=== PATIENT | male | born 1965 | race Caucasian/White ===

== ENCOUNTER 2022-07-24 03:05 | Inpatient (IN) | payer BC ==
[2022-07-24 03:35] LABS: Actual Bicarbonate (HCO3v) 22 mEq/L (22-28); Base Excess -1.9 mEq/L (-2 - +2); Chloride (VBG) 96 mmol/L (98-106); Critical Notified By: CP.PH; Hemoglobin (Hb) 14.7 g/dL (13.1-17.2); Puncture Site Other Site; Sodium 135.7 mmol/L (133-146); pH (venous) 7.41 (7.32-7.43)
[2022-07-24 03:39] LABS: #Basophils 0.1 10x3/uL (0.0-0.2); #Eosinphils 0.1 10x3/uL (0.0-0.5); #Monocytes 0.6 10x3/uL (0.0-1.1); #Neutrophils 6.8 10x3/uL (1.5-8.4); %Basophils 0.5 % (0.0-2.0); %Eosinophils 0.9 % (0.0-6.0); %Lymphocytes 22.9 % (18.0-47.0); %Monocytes 5.9 % (0.0-10.0); %Neutrophils 69.4 % (40.0-75.0); Hemoglobin 13.7 g/dL (13.5-17.5); Mean Corpuscular HGB CONC 33.5 g/dL (32.0-36.0); Mean Corpuscular Hemoglobin 29.6 pg (27.0-33.0); Mean Corpuscular Volume 88.3 fl (81.2-95.1); Mean Platelet Volume 11.9 fl (7.4-10.4); Platelet Count 316 10x3/uL (150-450); RBC Distribution Width 13.4 % (11.5-14.5); Red Blood Cell (RBC) Count 4.63 10x6/uL (4.32-5.72); White Blood Cell (WBC) Count 9.9 10x3/uL (3.5-10.5)
[2022-07-24 03:56] LABS: ALT (SGPT) 10 U/L (8-55); AST (SGOT) 11 U/L (5-34); Albumin 3.6 g/dL (3.5-5.0); Alkaline Phosphatase 111 U/L (40-110); Anion Gap 15 mmol/L (10-20); BUN (Urea Nitrogen) 17 mg/dL (8.4-25.7); Bilirubin, Total 0.7 mg/dL (0.2-1.2); Calc. Creatinine Clearance 0 mL/min (70-130); Calcium 8.8 mg/dL (7.8-10.44); Carbon Dioxide 22 mmol/L (22-29); Chloride 101 mmol/L (98-107); Estimated GFR 71; Globulin 2.6 g/dL (2.4-3.5); Lipase 26 U/L (8-78); Potassium 4.3 mmol/L (3.5-5.1); Protein, Total 6.2 g/dL (6.0-8.3); Sodium 134 mmol/L (136-145)
[2022-07-24 04:03] LABS: Glucose 536 mg/dL (70-105)
[2022-07-24] MEDS ORDERED: Insulin Regular 300 UNITS/3 ML VIAL ONE (04:06)
[2022-07-24 04:20] LABS: CKMB 2.5 ng/mL (0-6.6)
[2022-07-24 04:22] LABS: SARS-CoV-2 NAA Rapid Test Not Detected (NotDetected)
[2022-07-24] MEDS ORDERED: Furosemide 40 MG/4 ML VIAL ONE (05:00)
[2022-07-24] MEDS ORDERED: Lorazepam 2 MG/ML VIAL ONE (05:13)
[2022-07-24] MEDS ORDERED: Cefepime 2 GM VIAL ONE (05:35)
[2022-07-24] MEDS ORDERED: Ondansetron PF 4 MG/2 ML Vial IVP PRN (05:57)
[2022-07-24] MEDS ORDERED: Guaifenesin DM 100-10/5 ML UDCUP PO PRN (05:57)
[2022-07-24] MEDS ORDERED: HYDROcodone/Acetaminophen 5/325 mg Tablet PO PRN (05:57)
[2022-07-24] MEDS ORDERED: HumaLOG 300 UNITS/3 ML VIAL SC PRN ×2 (05:57→12:30)
[2022-07-24] MEDS ORDERED: Dextrose 5% in Water 1,000 ML IV PRN (05:57)
[2022-07-24] MEDS ORDERED: Acetaminophen 325 MG TAB PO PRN (05:57)
[2022-07-24] MEDS ORDERED: Calcium Carbonate 500 MG ChewTAB PO PRN (05:57)
[2022-07-24] MEDS ORDERED: Dextrose 50% Abboject 50 ML SYRINGE SLOW IVP PRN (05:57)
[2022-07-24] MEDS ORDERED: Ipratropium/Albuterol 3 ML NEB NEB PRN (06:00)
[2022-07-24] MEDS ORDERED: Vancomycin 1 GM VIAL ONE (06:10)
[2022-07-24] MEDS ORDERED: methylPREDNISolone Sod Succ/PF 125 MG/2 ML VIAL IVP SCH (08:15)
[2022-07-24 08:44] LABS: Lactic Acid 1.6 mmol/L (0.5-2.2)
[2022-07-24] MEDS ORDERED: Iopamidol 370 76% 100 ML VIAL ONE (08:59)
[2022-07-24] MEDS ORDERED: Lantus 1000 UNITS/10 ML VIAL SC SCH (09:00)
[2022-07-24] MEDS ORDERED: Metoprolol Tartrate 25 MG TAB PO SCH (09:00)
[2022-07-24 09:09] LABS: CKMB 2.4 ng/mL (0-6.6)
[2022-07-24] MEDS: Benzonatate 100 MG CAP PO SCH ×3 (10:08→20:46)
[2022-07-24] MEDS: Aspirin 81 mg Enteric Coated Tablet PO SCH (10:08)
[2022-07-24] MEDS: Famotidine/PF 20 mg/2ml Vial SLOW IVP SCH ×2 (10:14→20:46)
[2022-07-24] MEDS ORDERED: ALPRAZolam 0.5 MG TAB PO PRN (11:00)
[2022-07-24 11:52] LABS: Legionella Urinary Ag Negative (Negative); Strep pneumo Urine Ag NEGATIVE (NEGATIVE)
[2022-07-24] MEDS: methylPREDNISolone Sod Succ 40 MG VIAL IVP SCH ×2 (15:15→20:46)
[2022-07-24 15:44] LABS: Bilirubin Neg (Negative); Blood, Urine Negative (Negative); Clarity Clear (Clear); Glucose, Urine (Dipstick) >=1000 mg/dL (Negative); Ketone, Urine 15 mg/dL (Negative); Leukocyte Negative (Negative); Nitrite Negative (Negative); Protein, Urine (Dipstick) Negative (Neg-Trace); Urobilinogen Normal mg/dL (Less than 2)
[2022-07-24 15:57] LABS: Bacteria/HPF None Seen HPF (None Seen); RBC/HPF None Seen HPF (0-3); Squamous Epithelial 0-3 HPF (0-3); WBC/HPF None Seen HPF (0-3)
[2022-07-24] MEDS: HumaLOG 300 UNITS/3 ML VIAL SC PRN ×2 (16:41→21:22)
[2022-07-24] MEDS ORDERED: Carvedilol 3.125 MG TAB PO SCH (17:00)
[2022-07-24] MEDS ORDERED: Spironolactone 25 MG TAB PO SCH (17:15)
[2022-07-24] MEDS: Vancomycin HCl 1 GM in Sodium Chloride 0.9% 250 ML 250 ML IVPB SCH (18:14)
[2022-07-24] MEDS: Cefepime 2 GM in Sodium Chloride 0.9% 100 ML IVPB SCH (18:14)
[2022-07-24] MEDS ORDERED: Vancomycin 1 GM in Premix Bag 1 BAG IVPB SCH (18:30)
[2022-07-24] MEDS ORDERED: Zolpidem Tartrate 5 MG TAB PO PRN (20:39)
[2022-07-24] MEDS: Atorvastatin Calcium 10 MG TAB PO SCH (20:46)
[2022-07-24] MEDS: Lantus 1000 UNITS/10 ML VIAL SC SCH (20:46)
[2022-07-24] MEDS: Mometasone/Formoterol 200/5 60 PUFF INH SCH (21:49)
[2022-07-25] MEDS: methylPREDNISolone Sod Succ 40 MG VIAL IVP SCH ×2 (01:54→09:22)
[2022-07-25 04:41] LABS: #Monocytes 0.2 10x3/uL (0.0-1.1); %Basophils 0.1 % (0.0-2.0); %Lymphocytes 9.6 % (18.0-47.0); %Monocytes 1.6 % (0.0-10.0); %Neutrophils 88.3 % (40.0-75.0); Hemoglobin 13.6 g/dL (13.5-17.5); Mean Corpuscular HGB CONC 32.7 g/dL (32.0-36.0); Mean Corpuscular Hemoglobin 29.7 pg (27.0-33.0); Mean Corpuscular Volume 90.8 fl (81.2-95.1); Mean Platelet Volume 12.4 fl (7.4-10.4); Platelet Count 292 10x3/uL (150-450); RBC Distribution Width 13.6 % (11.5-14.5); Red Blood Cell (RBC) Count 4.58 10x6/uL (4.32-5.72); White Blood Cell (WBC) Count 11.4 10x3/uL (3.5-10.5)
[2022-07-25 04:45] LABS: Anion Gap 14 mmol/L (10-20); BUN (Urea Nitrogen) 19 mg/dL (8.4-25.7); Calc. Creatinine Clearance 102 mL/min (70-130); Calcium 9.1 mg/dL (7.8-10.44); Carbon Dioxide 19 mmol/L (22-29); Cardiac Risk 5.7 (Less than 4.5); Chloride 107 mmol/L (98-107); Cholesterol 267 mg/dl (< 200 Desired); Estimated GFR 91; Glucose 287 mg/dL (70-105); HDL Cholesterol 47 mg/dL (>60 Neg Risk); LDL Cholesterol, Calculated 203 mg/dL; Potassium 4.3 mmol/L (3.5-5.1); Sodium 136 mmol/L (136-145); Triglycerides 84 mg/dL (Less than 150)
[2022-07-25] MEDS: Cefepime 2 GM in Sodium Chloride 0.9% 100 ML IVPB SCH (05:23)
[2022-07-25] MEDS: Vancomycin HCl 1 GM in Sodium Chloride 0.9% 250 ML 250 ML IVPB SCH (05:52)
[2022-07-25] MEDS: HumaLOG 300 UNITS/3 ML VIAL SC PRN ×3 (06:05→17:09)
[2022-07-25] MEDS: Mometasone/Formoterol 200/5 60 PUFF INH SCH ×2 (06:43→20:05)
[2022-07-25] MEDS ORDERED: Spironolactone 25 MG TAB PO SCH (08:00)
[2022-07-25] MEDS ORDERED: Furosemide 20 MG/2 ML VIAL SLOW IVP SCH (09:00)
[2022-07-25] MEDS: Spironolactone 25 MG TAB PO SCH (09:17)
[2022-07-25] MEDS: Benzonatate 100 MG CAP PO SCH ×3 (09:18→20:32)
[2022-07-25] MEDS: Carvedilol 6.25 MG TAB PO SCH ×2 (09:18→17:14)
[2022-07-25] MEDS: Losartan 25 MG TAB PO SCH (09:19)
[2022-07-25] MEDS: Empagliflozin 10 MG TAB PO SCH (09:19)
[2022-07-25] MEDS: Aspirin 81 mg Enteric Coated Tablet PO SCH (09:20)
[2022-07-25] MEDS: Famotidine/PF 20 mg/2ml Vial SLOW IVP SCH ×2 (09:23→20:32)
[2022-07-25] MEDS: Lantus 1000 UNITS/10 ML VIAL SC SCH ×2 (09:26→20:32)
[2022-07-25] MEDS ORDERED: Lantus 1000 UNITS/10 ML VIAL SC SCH (11:45)
[2022-07-25 12:50] LABS: Hemoglobin A1c 12.8 % (4.0-6.0)
[2022-07-25] MEDS: D AMPHETAMINE 30 MG PO SCH (17:24)
[2022-07-25 17:41] LABS: Vancomycin, Trough 10.2 ug/mL
[2022-07-25] MEDS: Doxycycline 100 MG CAP PO SCH (20:32)
[2022-07-25] MEDS: Cefdinir 300 MG CAP PO SCH (20:32)
[2022-07-25] MEDS: Atorvastatin Calcium 10 MG TAB PO SCH (20:32)
[2022-07-25] MEDS ORDERED: Sertraline 25 MG TAB PO SCH (21:00)
[2022-07-26 04:18] VITALS: BP 114/83; TEMP 98.3
[2022-07-26 05:49] VITALS: BMI 25.4
[2022-07-26] MEDS: Mometasone/Formoterol 200/5 60 PUFF INH SCH (06:24)
[2022-07-26] MEDS: HumaLOG 300 UNITS/3 ML VIAL SC PRN ×2 (06:42→11:50)
[2022-07-26] MEDS: Spironolactone 25 MG TAB PO SCH (08:51)
[2022-07-26] MEDS: Losartan 25 MG TAB PO SCH (08:51)
[2022-07-26] MEDS: Benzonatate 100 MG CAP PO SCH (08:51)
[2022-07-26] MEDS: Carvedilol 6.25 MG TAB PO SCH (08:52)
[2022-07-26] MEDS: Empagliflozin 10 MG TAB PO SCH (08:52)
[2022-07-26] MEDS: Aspirin 81 mg Enteric Coated Tablet PO SCH (08:52)
[2022-07-26] MEDS: Famotidine/PF 20 mg/2ml Vial SLOW IVP SCH (08:53)
[2022-07-26] MEDS: Cefdinir 300 MG CAP PO SCH (08:54)
[2022-07-26] MEDS: Doxycycline 100 MG CAP PO SCH (08:55)
[2022-07-26] MEDS: D AMPHETAMINE 30 MG PO SCH (08:55)
[2022-07-26] MEDS: Lantus 1000 UNITS/10 ML VIAL SC SCH (08:56)
[2022-07-26] MEDS ORDERED: Furosemide 40 MG TAB PO SCH (09:00)
== END 2022-07-26 15:30 | disposition home or self-care (01) | DRG 291 ==
LOC: CSHERS 03:05 → SUATTDRO 03:05 → CSHICU 05:57
PROVIDERS: ADMIT Student in an Organized Health Care Education/Training Program; ATTEND Family Medicine
PROC: 4A033R1 Measurement of Arterial Saturation, Peripheral, Percutaneous Approach (ICD-10-PCS; principal; 2022-07-24)
PROC: 5A09357 Assistance with Respiratory Ventilation, Less than 24 Consecutive Hours, Continuous Positive Airway Pressure (ICD-10-PCS; 2022-07-24)
DX: I11.0 Hypertensive heart disease with heart failure (principal); I50.43 Acute on chronic combined systolic (congestive) and diastolic (congestive) heart failure; J96.01 Acute respiratory failure with hypoxia; R65.10 Systemic inflammatory response syndrome (SIRS) of non-infectious origin without acute organ dysfunction; Z20.822 Contact with and (suspected) exposure to COVID-19; E11.65 Type 2 diabetes mellitus with hyperglycemia; Z79.84 Long term (current) use of oral hypoglycemic drugs; Z79.899 Other long term (current) drug therapy; E78.5 Hyperlipidemia, unspecified; G47.33 Obstructive sleep apnea (adult) (pediatric); F41.9 Anxiety disorder, unspecified; F90.9 Attention-deficit hyperactivity disorder, unspecified type; Z87.891 Personal history of nicotine dependence; R77.8 Other specified abnormalities of plasma proteins; Z71.6 Tobacco abuse counseling; I42.0 Dilated cardiomyopathy
CPT/HCPCS: 36415; 36416; 71045; 71275; 80048; 80053; 80061; 80202; 81001; 82010; 82553; 82728; 82805; 83036; 83605; 83690; 83735; 83880; 84145; 84443; 84484; 85025; 85652; 87040; 87086; 87449; 87804; 87899; 93005; 93306; 94660; 94664; 94760; 96361; 96365; 96367; 96375; J0692; J1650; J1815; J1940; J1956; J2060; J2920; J2930; J3370; J3490; J7050; Q9967; S0028; U0002

== ENCOUNTER 2022-08-09 13:51 | Emergency (ER) | payer BC ==
[2022-08-09 14:30] LABS: #Eosinphils 0.2 10x3/uL (0.0-0.5); #Monocytes 0.8 10x3/uL (0.0-1.1); #Neutrophils 6.3 10x3/uL (1.5-8.4); %Basophils 0.4 % (0.0-2.0); %Eosinophils 1.6 % (0.0-6.0); %Lymphocytes 27.7 % (18.0-47.0); %Monocytes 7.7 % (0.0-10.0); %Neutrophils 62.4 % (40.0-75.0); Hemoglobin 12.2 g/dL (13.5-17.5); Mean Corpuscular HGB CONC 32.9 g/dL (32.0-36.0); Mean Corpuscular Volume 91.2 fl (81.2-95.1); Mean Platelet Volume 11.5 fl (7.4-10.4); Platelet Count 257 10x3/uL (150-450); RBC Distribution Width 14.2 % (11.5-14.5); Red Blood Cell (RBC) Count 4.07 10x6/uL (4.32-5.72); White Blood Cell (WBC) Count 10.1 10x3/uL (3.5-10.5)
[2022-08-09 14:43] LABS: ALT (SGPT) 34 U/L (8-55); AST (SGOT) 19 U/L (5-34); Albumin 3.8 g/dL (3.5-5.0); Alkaline Phosphatase 94 U/L (40-110); Anion Gap 15 mmol/L (10-20); BUN (Urea Nitrogen) 14 mg/dL (8.4-25.7); Bilirubin, Total 1.5 mg/dL (0.2-1.2); Calc. Creatinine Clearance 0 mL/min (70-130); Calcium 8.7 mg/dL (7.8-10.44); Carbon Dioxide 23 mmol/L (22-29); Chloride 107 mmol/L (98-107); Estimated GFR 80; Globulin 2.5 g/dL (2.4-3.5); Glucose 121 mg/dL (70-105); Potassium 3.4 mmol/L (3.5-5.1); Protein, Total 6.3 g/dL (6.0-8.3); Sodium 142 mmol/L (136-145)
[2022-08-09 15:05] LABS: CKMB 2.4 ng/mL (0-6.6)
[2022-08-09] MEDS ORDERED: Furosemide 40 MG/4 ML VIAL ONE (16:52)
== END 2022-08-09 19:10 | disposition home or self-care (01) ==
LOC: CSHERS 13:51
DX: I11.0 Hypertensive heart disease with heart failure (principal); I50.9 Heart failure, unspecified; J90 Pleural effusion, not elsewhere classified; E11.9 Type 2 diabetes mellitus without complications; G47.30 Sleep apnea, unspecified; Z87.891 Personal history of nicotine dependence; Z79.899 Other long term (current) drug therapy; Z79.82 Long term (current) use of aspirin; Z79.4 Long term (current) use of insulin
CPT/HCPCS: 36415; 71045; 80053; 82553; 83880; 84484; 85025; 93005; 96374; J1940

== ENCOUNTER 2022-10-30 07:54 | Emergency (ER) | payer BC ==
[2022-10-30] MEDS ORDERED: HYDROcodone/Acetaminophen 5/325 mg Tablet ONE (08:36)
[2022-10-30 08:47] LABS: #Basophils 0.1 10x3/uL (0.0-0.2); #Eosinphils 0.1 10x3/uL (0.0-0.5); #Monocytes 0.4 10x3/uL (0.0-1.1); #Neutrophils 8.7 10x3/uL (1.5-8.4); %Basophils 0.5 % (0.0-2.0); %Eosinophils 0.7 % (0.0-6.0); %Lymphocytes 13.4 % (18.0-47.0); %Monocytes 4.1 % (0.0-10.0); Mean Corpuscular HGB CONC 34.9 g/dL (32.0-36.0); Mean Corpuscular Hemoglobin 29.6 pg (27.0-33.0); Mean Corpuscular Volume 84.8 fl (81.2-95.1); Mean Platelet Volume 13.2 fl (7.4-10.4); Platelet Count 225 10x3/uL (150-450); RBC Distribution Width 14.2 % (11.5-14.5); Red Blood Cell (RBC) Count 5.07 10x6/uL (4.32-5.72); White Blood Cell (WBC) Count 10.7 10x3/uL (3.5-10.5)
[2022-10-30 08:55] LABS: Magnesium 1.8 mg/dL (1.6-2.6)
[2022-10-30 09:46] LABS: ALT (SGPT) 17 U/L (8-55); AST (SGOT) 14 U/L (5-34); Albumin 4.3 g/dL (3.5-5.0); Alkaline Phosphatase 175 U/L (40-110); Anion Gap 21 mmol/L (10-20); BUN (Urea Nitrogen) 36 mg/dL (8.4-25.7); Calc. Creatinine Clearance 0 mL/min (70-130); Calcium 9.5 mg/dL (7.8-10.44); Carbon Dioxide 21 mmol/L (22-29); Chloride 85 mmol/L (98-107); Estimated GFR 38; Globulin 3.8 g/dL (2.4-3.5); Potassium 4.1 mmol/L (3.5-5.1); Protein, Total 8.1 g/dL (6.0-8.3); Sodium 123 mmol/L (136-145)
[2022-10-30 09:48] LABS: Glucose 778 mg/dL (70-105)
[2022-10-30] MEDS ORDERED: Insulin Regular 300 UNITS/3 ML VIAL ONE (10:02)
[2022-10-30 14:50] LABS: Anion Gap 15 mmol/L (10-20); BUN (Urea Nitrogen) 33 mg/dL (8.4-25.7); Calc. Creatinine Clearance 0 mL/min (70-130); Calcium 9.6 mg/dL (7.8-10.44); Carbon Dioxide 28 mmol/L (22-29); Chloride 91 mmol/L (98-107); Estimated GFR 51; Glucose 305 mg/dL (70-105); Potassium 3.6 mmol/L (3.5-5.1); Sodium 130 mmol/L (136-145)
== END 2022-10-30 15:32 | disposition home or self-care (01) ==
LOC: CSHERS 07:54
DX: N17.9 Acute kidney failure, unspecified (principal); E11.65 Type 2 diabetes mellitus with hyperglycemia; I10 Essential (primary) hypertension; Z87.891 Personal history of nicotine dependence
CPT/HCPCS: 36416; 71045; 80053; 83735; 83880; 84484; 85025; 93005; 96374; 96376; J1815